=== PATIENT | male | born 1955 | race Caucasian/White ===

== ENCOUNTER 2018-01-09 19:53 | Inpatient (IN) ==
[2018-01-09] MEDS ORDERED: SODIUM CHLORIDE 0.9% 1,000 ML IV STA ×2 (20:10→21:10)
[2018-01-09 20:36] LABS: Basophils % 0.2 % (0.0-0.8); Eosinophils % 0.1 % (0.00-10.9); Hematocrit 19.9 VOL% (42.0-52.0); Immature Granulocytes % 1.1 %; Immature Granulocytes Absolute 0.16 #; Lymphocytes # 1.1 10*3/uL (1.4-4.0); Lymphocytes % 7.7 % (21.2-54.2); Mean Corpuscular HGB Conc 35.2 GM/DL (32-36); Mean Corpuscular Hemoglobin 31 PG (27-34); Mean Corpuscular Volume 88.8 FL (87-102); Mean Platelet Volume 9.5 FL (9.6-12.0); Monocytes # 0.7 10*3/uL (0.11-0.8); Monocytes % 5.1 % (1.7-12.7); Neutrophils # 12.5 10*3/uL (1.4-7.4); Neutrophils % 85.8 % (38.7-73.9); Platelet Count 276 T/CUMM (130-400); Red Blood Count 2.24 MC/CUMM (3.8-5.5); Red Cell Distribution Width 12.6 % (9.3-17.3); White Blood Count 14.6 T/CUMM (4-12)
[2018-01-09 20:52] LABS: PT Patient Result 10.6 SECS; Partial Thromboplastin Time 32.9 SECS (0-40)
[2018-01-09 21:05] LABS: Alanine Aminotransferase 13 U/L (16-61); Albumin 2.6 G/DL (3.4-5.0); Alkaline Phosphatase 67 U/L (45-117); Aspartate Amino Transferase 12 U/L (0-37); Blood Urea Nitrogen 76 MG/DL (7-18); Calcium 7.5 MG/DL (8.5-10.1); Glucose 100 MG/DL (74-106); Potassium 4.5 MMOL/L (3.5-5.1); Sodium 136 MMOL/L (136-145); Total Protein 4.6 G/DL (6.4-8.3); Troponin I Only 0.018 NG/ML (0.00-0.045)
[2018-01-09 22:25] LABS: Apearance,Urine CLEAR (Clear); Bilirubin,Urine Negative (Negative); Blood, Urine Negative (Negative); Glucose,Urine (UA) Negative (Negative); Hyaline Casts,Urine 2 /LPF (0-3); Ketones,Urine Negative (Negative); Nitrite,Urine Negative (Negative); Protein,Urine Negative; Urine Color Straw (Yellow); Urine Specific Gravity 1.009 (1.001-1.035); Urine Urobilinogen < 2.0 EU/DL (0.2-1.0)
[2018-01-10] MEDS ORDERED: ACETAMINOPHEN 325 MG TABLET ONE (00:33)
[2018-01-10] MEDS ORDERED: ACETAMINOPHEN 325 MG TABLET PO ONE (00:33)
[2018-01-10] MEDS ORDERED: SODIUM CHLORIDE 0.9% 1,000 ML IV PRN (00:37)
[2018-01-10] MEDS ORDERED: ONDANSETRON 4 MG/2 ML VIAL IV PRN (00:39)
[2018-01-10] MEDS ORDERED: PANTOPRAZOLE 40 MG VIAL IV ONE (00:43)
[2018-01-10] MEDS: SODIUM CHLORIDE 0.9% 1,000 ML IV SCH ×3 (01:33→21:23)
[2018-01-10 08:08] LABS: Basophils % 0.2 % (0.0-0.8); Eosinophils # 0.1 10*3/uL (0.0-0.87); Eosinophils % 0.4 % (0.00-10.9); Hematocrit 19.7 VOL% (42.0-52.0); Hemoglobin 6.8 GM/DL (14.0-18.0); Immature Granulocytes % 0.9 %; Lymphocytes # 1.6 10*3/uL (1.4-4.0); Lymphocytes % 14.4 % (21.2-54.2); Mean Corpuscular HGB Conc 34.5 GM/DL (32-36); Mean Corpuscular Hemoglobin 31 PG (27-34); Mean Corpuscular Volume 88.3 FL (87-102); Mean Platelet Volume 9.7 FL (9.6-12.0); Monocytes # 0.8 10*3/uL (0.11-0.8); Monocytes % 6.8 % (1.7-12.7); Neutrophils # 8.6 10*3/uL (1.4-7.4); Neutrophils % 77.3 % (38.7-73.9); Platelet Count 243 T/CUMM (130-400); Red Blood Count 2.23 MC/CUMM (3.8-5.5); Red Cell Distribution Width 13.1 % (9.3-17.3); White Blood Count 11.2 T/CUMM (4-12)
[2018-01-10 08:34] LABS: Calcium 7.6 MG/DL (8.5-10.1); Osmolality,Calculated 291.7 MOS/KG (273-304); Potassium 4.4 MMOL/L (3.5-5.1)
[2018-01-10] MEDS: CARBIDOPA/LEVODOPA 25-100 MG TABLET PO SCH ×3 (09:00→21:22)
[2018-01-10] MEDS: PANTOPRAZOLE 40 MG VIAL IV SCH ×2 (09:55→21:19)
[2018-01-10] MEDS ORDERED: MORPHINE 4 MG/1 ML VIAL IV PRN (14:10)
[2018-01-10 19:57] LABS: Hematocrit 18.7 VOL% (42.0-52.0)
[2018-01-10 20:01] LABS: Hemoglobin 6.3 GM/DL (14.0-18.0)
[2018-01-10] MEDS ORDERED: FUROSEMIDE 20 MG/2 ML VIAL IV ONE (20:21)
[2018-01-10] MEDS: RASAGILINE 0.5 MG TABLET PO SCH (21:22)
[2018-01-11 06:18] LABS: Hematocrit 17.3 VOL% (42.0-52.0)
[2018-01-11 06:21] LABS: Hemoglobin 5.9 GM/DL (14.0-18.0)
[2018-01-11] MEDS ORDERED: SODIUM CHLORIDE 0.9% 1,000 ML IV PRN ×2 (06:48→08:42)
[2018-01-11] MEDS: SODIUM CHLORIDE 0.9% 1,000 ML IV SCH ×3 (07:30→23:26)
[2018-01-11] MEDS ORDERED: FUROSEMIDE 20 MG/2 ML VIAL IV ONE (07:37)
[2018-01-11] MEDS: CARBIDOPA/LEVODOPA 25-100 MG TABLET PO SCH ×3 (08:48→20:44)
[2018-01-11] MEDS: PANTOPRAZOLE 40 MG VIAL IV SCH ×2 (08:48→20:43)
[2018-01-11] MEDS: RASAGILINE 0.5 MG TABLET PO SCH (08:48)
[2018-01-11] MEDS ORDERED: SUCCINYLCHOLINE 200 MG/10 ML VIAL ONE (09:30)
[2018-01-11] MEDS ORDERED: LIDOCAINE 1% 5 ML VIAL ONE (09:30)
[2018-01-11] MEDS ORDERED: ETOMIDATE 20 MG/10 ML VIAL IV ONE (09:30)
[2018-01-11] MEDS ORDERED: PHENYLEPHRINE 50 MG/5 ML VIAL ONE (09:30)
[2018-01-11] MEDS ORDERED: SEVOFLURANE 1 UNIT/15 MINUTE INH ONE (09:51)
[2018-01-11 11:28] LABS: Hematocrit 21.9 VOL% (42.0-52.0)
[2018-01-11 11:32] LABS: Hemoglobin 7.5 GM/DL (14.0-18.0)
[2018-01-11] MEDS ORDERED: GLUCAGON 1 MG VIAL ONE (12:12)
[2018-01-11] MEDS ORDERED: EPINEPHrine 1 MG/ML VIAL ONE (12:13)
[2018-01-11] MEDS: FUROSEMIDE 20 MG/2 ML VIAL IV PRN ×2 (14:39→18:02)
[2018-01-11 19:01] LABS: Hematocrit 26.9 VOL% (42.0-52.0); Hemoglobin 9.2 GM/DL (14.0-18.0)
[2018-01-12] MEDS: SODIUM CHLORIDE 0.9% 1,000 ML IV SCH ×2 (01:34→10:32)
[2018-01-12 05:43] LABS: Basophils % 0.3 % (0.0-0.8); Eosinophils # 0.3 10*3/uL (0.0-0.87); Eosinophils % 1.9 % (0.00-10.9); Hematocrit 24.5 VOL% (42.0-52.0); Hemoglobin 8.3 GM/DL (14.0-18.0); Immature Granulocytes % 1.1 %; Immature Granulocytes Absolute 0.14 #; Lymphocytes % 15.1 % (21.2-54.2); Mean Corpuscular HGB Conc 33.9 GM/DL (32-36); Mean Corpuscular Hemoglobin 31 PG (27-34); Mean Corpuscular Volume 90.7 FL (87-102); Mean Platelet Volume 9.6 FL (9.6-12.0); Monocytes # 0.9 10*3/uL (0.11-0.8); Monocytes % 7.2 % (1.7-12.7); Neutrophils # 9.7 10*3/uL (1.4-7.4); Neutrophils % 74.4 % (38.7-73.9); Platelet Count 179 T/CUMM (130-400); Red Cell Distribution Width 14.2 % (9.3-17.3)
[2018-01-12 05:48] LABS: PT Patient Result 10.3 SECS
[2018-01-12 06:27] LABS: Calcium 7.2 MG/DL (8.5-10.1); Osmolality,Calculated 277.8 MOS/KG (273-304); Potassium 3.2 MMOL/L (3.5-5.1)
[2018-01-12] MEDS: RASAGILINE 0.5 MG TABLET PO SCH (10:31)
[2018-01-12] MEDS: CARBIDOPA/LEVODOPA 25-100 MG TABLET PO SCH ×3 (10:32→21:08)
[2018-01-12] MEDS: PANTOPRAZOLE 40 MG VIAL IV SCH ×2 (10:32→21:08)
[2018-01-12 13:13] LABS: Hematocrit 23.1 VOL% (42.0-52.0); Hemoglobin 8.3 GM/DL (14.0-18.0)
[2018-01-12] MEDS ORDERED: SODIUM CHLORIDE 0.9% 1,000 ML IV PRN (15:25)
[2018-01-12 15:50] LABS: Hematocrit 24.9 VOL% (42.0-52.0); Hemoglobin 8.5 GM/DL (14.0-18.0)
[2018-01-12 21:22] LABS: Hematocrit 25.2 VOL% (42.0-52.0); Hemoglobin 8.7 GM/DL (14.0-18.0)
[2018-01-13 03:18] LABS: Hematocrit 27.5 VOL% (42.0-52.0); Hemoglobin 9.5 GM/DL (14.0-18.0)
[2018-01-13 05:07] LABS: Hematocrit 27.2 VOL% (42.0-52.0); Hemoglobin 9.6 GM/DL (14.0-18.0)
[2018-01-13] MEDS: RASAGILINE 0.5 MG TABLET PO SCH (08:46)
[2018-01-13] MEDS: PANTOPRAZOLE 40 MG VIAL IV SCH ×2 (08:47→20:44)
[2018-01-13] MEDS: CARBIDOPA/LEVODOPA 25-100 MG TABLET PO SCH ×3 (08:47→20:44)
[2018-01-13] MEDS ORDERED: MORPHINE 4 MG/1 ML VIAL IV PRN (13:09)
[2018-01-14 05:32] LABS: Basophils % 0.2 % (0.0-0.8); Eosinophils # 0.4 10*3/uL (0.0-0.87); Eosinophils % 3.6 % (0.00-10.9); Hematocrit 28.1 VOL% (42.0-52.0); Immature Granulocytes % 0.8 %; Immature Granulocytes Absolute 0.09 #; Lymphocytes # 1.4 10*3/uL (1.4-4.0); Lymphocytes % 12.2 % (21.2-54.2); Mean Corpuscular HGB Conc 35.6 GM/DL (32-36); Mean Corpuscular Hemoglobin 32 PG (27-34); Mean Corpuscular Volume 88.6 FL (87-102); Mean Platelet Volume 9.7 FL (9.6-12.0); Monocytes # 0.8 10*3/uL (0.11-0.8); Monocytes % 7.2 % (1.7-12.7); Neutrophils # 8.7 10*3/uL (1.4-7.4); Platelet Count 259 T/CUMM (130-400); Red Blood Count 3.17 MC/CUMM (3.8-5.5); Red Cell Distribution Width 14.3 % (9.3-17.3); White Blood Count 11.5 T/CUMM (4-12)
[2018-01-14] MEDS: CARBIDOPA/LEVODOPA 25-100 MG TABLET PO SCH ×4 (09:25→20:07)
[2018-01-14] MEDS: PANTOPRAZOLE 40 MG VIAL IV SCH ×3 (09:25→20:07)
[2018-01-14] MEDS: RASAGILINE 0.5 MG TABLET PO SCH (09:25)
[2018-01-15] MEDS ORDERED: PANTOPRAZOLE 40 MG TABLET PO SCH (07:00)
[2018-01-15 07:34] LABS: Basophils % 0.3 % (0.0-0.8); Eosinophils # 0.5 10*3/uL (0.0-0.87); Eosinophils % 5.1 % (0.00-10.9); Hematocrit 29.2 VOL% (42.0-52.0); Hemoglobin 9.9 GM/DL (14.0-18.0); Immature Granulocytes % 0.7 %; Immature Granulocytes Absolute 0.06 #; Lymphocytes # 1.1 10*3/uL (1.4-4.0); Lymphocytes % 12.3 % (21.2-54.2); Mean Corpuscular HGB Conc 33.9 GM/DL (32-36); Mean Corpuscular Hemoglobin 31 PG (27-34); Mean Corpuscular Volume 91.5 FL (87-102); Monocytes # 0.7 10*3/uL (0.11-0.8); Monocytes % 7.8 % (1.7-12.7); Neutrophils # 6.7 10*3/uL (1.4-7.4); Neutrophils % 73.8 % (38.7-73.9); Platelet Count 282 T/CUMM (130-400); Red Blood Count 3.19 MC/CUMM (3.8-5.5); Red Cell Distribution Width 14.6 % (9.3-17.3); White Blood Count 9.1 T/CUMM (4-12)
[2018-01-15] MEDS: CARBIDOPA/LEVODOPA 25-100 MG TABLET PO SCH (08:46)
[2018-01-15] MEDS: RASAGILINE 0.5 MG TABLET PO SCH (08:46)
[2018-01-15 12:12] VITALS: BP 122/66
== END 2018-01-15 14:20 | disposition home health service (06) | DRG 377 ==
LOC: EDBD → EDUNIT# → N.ED 19:53 → N.EDINP 23:39 → N.3E 01-10 00:10 → N.ICU 01-11 10:33 → N.5E 01-12 14:49
PROVIDERS: ADMIT Internal Medicine Geriatric Medicine; ATTEND Internal Medicine Geriatric Medicine

== ENCOUNTER 2018-01-17 10:50 | Inpatient (IN) ==
[2018-01-17] MEDS ORDERED: PANTOPRAZOLE 40 MG VIAL IV STA (11:12)
[2018-01-17] MEDS ORDERED: ONDANSETRON 4 MG/2 ML VIAL IV STA (11:12)
[2018-01-17] MEDS ORDERED: SODIUM CHLORIDE 0.9% 1,000 ML IV STA (11:12)
[2018-01-17] MEDS ORDERED: ONDANSETRON 4 MG/2 ML VIAL ONE (11:41)
[2018-01-17] MEDS ORDERED: PANTOPRAZOLE 40 MG VIAL IV ONE (11:41)
[2018-01-17 12:58] LABS: Basophils % 0.2 % (0.0-0.8); Eosinophils # 0.2 10*3/uL (0.0-0.87); Eosinophils % 1.5 % (0.00-10.9); Hematocrit 16.2 VOL% (42.0-52.0); Immature Granulocytes % 0.9 %; Lymphocytes # 0.6 10*3/uL (1.4-4.0); Lymphocytes % 5.8 % (21.2-54.2); Mean Corpuscular HGB Conc 32.7 GM/DL (32-36); Mean Corpuscular Hemoglobin 31 PG (27-34); Mean Corpuscular Volume 93.1 FL (87-102); Mean Platelet Volume 9.3 FL (9.6-12.0); Monocytes # 0.6 10*3/uL (0.11-0.8); Monocytes % 5.8 % (1.7-12.7); Neutrophils # 9.1 10*3/uL (1.4-7.4); Neutrophils % 85.8 % (38.7-73.9); Platelet Count 261 T/CUMM (130-400); Red Blood Count 1.74 MC/CUMM (3.8-5.5); White Blood Count 10.6 T/CUMM (4-12)
[2018-01-17 13:01] LABS: Hemoglobin 5.3 GM/DL (14.0-18.0)
[2018-01-17] MEDS ORDERED: SODIUM CHLORIDE 0.9% 1,000 ML IV PRN ×2 (13:02→21:07)
[2018-01-17 13:12] LABS: Alanine Aminotransferase < 6 U/L (16-61); Albumin 1.8 G/DL (3.4-5.0); Alkaline Phosphatase 56 U/L (45-117); Aspartate Amino Transferase 17 U/L (0-37); Blood Urea Nitrogen 27 MG/DL (7-18); Calcium 6.9 MG/DL (8.5-10.1); Glucose 109 MG/DL (74-106); Osmolality,Calculated 280.7 MOS/KG (273-304); Potassium 4.2 MMOL/L (3.5-5.1); Sodium 138 MMOL/L (136-145); Total Protein 3.8 G/DL (6.4-8.3)
[2018-01-17] MEDS ORDERED: ALBUTEROL 2.5 MG/3 ML NEB RESP TX PRN (14:10)
[2018-01-17] MEDS ORDERED: ACETAMINOPHEN 325 MG TABLET PO PRN (14:10)
[2018-01-17] MEDS ORDERED: ONDANSETRON 4 MG/2 ML VIAL IV PRN (14:10)
[2018-01-17 17:49] LABS: PT Patient Result 10.8 SECS; Partial Thromboplastin Time 38.8 SECS (0-40)
[2018-01-17] MEDS: CARBIDOPA/LEVODOPA 25-100 MG TABLET PO SCH ×2 (18:19→22:02)
[2018-01-17] MEDS: SODIUM CHLORIDE 0.9% 1,000 ML IV SCH (18:19)
[2018-01-17 22:33] LABS: Hematocrit 22.6 VOL% (42.0-52.0); Hemoglobin 7.5 GM/DL (14.0-18.0)
[2018-01-18 00:50] LABS: Hematocrit 21.4 VOL% (42.0-52.0); Hemoglobin 7.4 GM/DL (14.0-18.0)
[2018-01-18] MEDS: SODIUM CHLORIDE 0.9% 1,000 ML IV SCH ×2 (02:18→10:28)
[2018-01-18 02:25] LABS: Hematocrit 20.8 VOL% (42.0-52.0); Hemoglobin 7.2 GM/DL (14.0-18.0)
[2018-01-18 04:24] LABS: Basophils % 0.1 % (0.0-0.8); Eosinophils # 0.3 10*3/uL (0.0-0.87); Eosinophils % 3.9 % (0.00-10.9); Hematocrit 20.7 VOL% (42.0-52.0); Hemoglobin 7.2 GM/DL (14.0-18.0); Immature Granulocytes % 0.7 %; Immature Granulocytes Absolute 0.06 #; Lymphocytes # 1.5 10*3/uL (1.4-4.0); Lymphocytes % 16.5 % (21.2-54.2); Mean Corpuscular HGB Conc 34.8 GM/DL (32-36); Mean Corpuscular Hemoglobin 31 PG (27-34); Mean Corpuscular Volume 88.8 FL (87-102); Mean Platelet Volume 9.3 FL (9.6-12.0); Monocytes # 0.7 10*3/uL (0.11-0.8); Neutrophils # 6.3 10*3/uL (1.4-7.4); Neutrophils % 70.8 % (38.7-73.9); Platelet Count 224 T/CUMM (130-400); Red Blood Count 2.33 MC/CUMM (3.8-5.5); White Blood Count 8.8 T/CUMM (4-12)
[2018-01-18 04:32] LABS: PT Patient Result 10.9 SECS
[2018-01-18 05:04] LABS: Alanine Aminotransferase < 6 U/L (16-61); Albumin 1.7 G/DL (3.4-5.0); Alkaline Phosphatase 52 U/L (45-117); Aspartate Amino Transferase 16 U/L (0-37); Blood Urea Nitrogen 24 MG/DL (7-18); Glucose 88 MG/DL (74-106); Osmolality,Calculated 281.4 MOS/KG (273-304); Potassium 4.3 MMOL/L (3.5-5.1); Sodium 140 MMOL/L (136-145); Total Protein 3.3 G/DL (6.4-8.3)
[2018-01-18 07:29] LABS: Hematocrit 20.7 VOL% (42.0-52.0); Hemoglobin 7.2 GM/DL (14.0-18.0)
[2018-01-18] MEDS: PANTOPRAZOLE 40 MG TABLET PO SCH (09:02)
[2018-01-18] MEDS: PRAMIPEXOLE 1 MG TABLET PO SCH (09:02)
[2018-01-18] MEDS: RASAGILINE 0.5 MG TABLET PO SCH (09:03)
[2018-01-18] MEDS: CARBIDOPA/LEVODOPA 25-100 MG TABLET PO SCH ×3 (09:03→21:25)
[2018-01-18] MEDS ORDERED: DIAZEPAM 5 MG TABLET PO ONE (09:54)
[2018-01-18] MEDS ORDERED: MIDAZOLAM 2 MG/2 ML VIAL IV ONE (09:54)
[2018-01-18] MEDS ORDERED: HEPARIN/NACL 0.9% 2 UNITS/ML 2,000 ML IV ONE (11:08)
[2018-01-18] MEDS ORDERED: MIDAZOLAM 2 MG/2 ML VIAL ONE (11:39)
[2018-01-18 14:28] LABS: Hematocrit 22.4 VOL% (42.0-52.0); Hemoglobin 7.8 GM/DL (14.0-18.0)
[2018-01-18] MEDS ORDERED: FUROSEMIDE 20 MG/2 ML VIAL IV PRN (17:28)
[2018-01-18] MEDS ORDERED: SODIUM CHLORIDE 0.9% 1,000 ML IV PRN (17:28)
[2018-01-19] MEDS: SODIUM CHLORIDE 0.9% 1,000 ML IV SCH ×6 (02:10→18:53)
[2018-01-19 02:33] LABS: Hematocrit 27.8 VOL% (42.0-52.0); Hemoglobin 9.3 GM/DL (14.0-18.0)
[2018-01-19 05:59] LABS: Lactic Acid 0.5 MMOL/L (0.4-2.0)
[2018-01-19 06:05] LABS: Alanine Aminotransferase < 6 U/L (16-61); Albumin 1.8 G/DL (3.4-5.0); Alkaline Phosphatase 61 U/L (45-117); Aspartate Amino Transferase 16 U/L (0-37); Bilirubin,Indirect 0.9 MG/DL (0.0-1.0); Total Protein 3.5 G/DL (6.4-8.3)
[2018-01-19 06:52] LABS: Hematocrit 24.9 VOL% (42.0-52.0); Hemoglobin 8.4 GM/DL (14.0-18.0)
[2018-01-19] MEDS: PRAMIPEXOLE 1 MG TABLET PO SCH (08:52)
[2018-01-19] MEDS: RASAGILINE 0.5 MG TABLET PO SCH (08:53)
[2018-01-19] MEDS: CARBIDOPA/LEVODOPA 25-100 MG TABLET PO SCH ×3 (08:53→21:00)
[2018-01-19] MEDS: PANTOPRAZOLE 40 MG TABLET PO SCH (08:53)
[2018-01-19 14:16] LABS: Hematocrit 24.7 VOL% (42.0-52.0); Hemoglobin 8.5 GM/DL (14.0-18.0)
[2018-01-19 23:38] LABS: Hematocrit 23.9 VOL% (42.0-52.0); Hemoglobin 8.2 GM/DL (14.0-18.0)
[2018-01-20] MEDS: SODIUM CHLORIDE 0.9% 1,000 ML IV SCH ×2 (02:57→12:00)
[2018-01-20 06:14] LABS: Basophils % 0.4 % (0.0-0.8); Eosinophils # 0.4 10*3/uL (0.0-0.87); Eosinophils % 4.1 % (0.00-10.9); Hematocrit 25.9 VOL% (42.0-52.0); Immature Granulocytes % 0.7 %; Immature Granulocytes Absolute 0.07 #; Lymphocytes # 1.1 10*3/uL (1.4-4.0); Lymphocytes % 11.1 % (21.2-54.2); Mean Corpuscular HGB Conc 34.7 GM/DL (32-36); Mean Corpuscular Hemoglobin 31 PG (27-34); Mean Corpuscular Volume 88.7 FL (87-102); Mean Platelet Volume 9.5 FL (9.6-12.0); Monocytes # 0.9 10*3/uL (0.11-0.8); Monocytes % 8.5 % (1.7-12.7); Neutrophils # 7.7 10*3/uL (1.4-7.4); Neutrophils % 75.2 % (38.7-73.9); Platelet Count 263 T/CUMM (130-400); Red Blood Count 2.92 MC/CUMM (3.8-5.5); White Blood Count 10.2 T/CUMM (4-12)
[2018-01-20 06:35] LABS: Ferritin 132.4 ng/ml (26-388)
[2018-01-20 06:43] LABS: Folate 8.4 NG/ML (5.4-24.0); Vitamin B12 149 PG/ML (211-911)
[2018-01-20 07:32] LABS: Sedimentation Rate-Westergren 38 MM/HR (0-20)
[2018-01-20] MEDS: CARBIDOPA/LEVODOPA 25-100 MG TABLET PO SCH ×3 (08:31→21:32)
[2018-01-20] MEDS: RASAGILINE 0.5 MG TABLET PO SCH (08:31)
[2018-01-20] MEDS: PANTOPRAZOLE 40 MG TABLET PO SCH ×2 (08:31→21:32)
[2018-01-20] MEDS: PRAMIPEXOLE 1 MG TABLET PO SCH (08:31)
[2018-01-20] MEDS ORDERED: CYANOCOBALAMIN 1000 MCG/1 ML VIAL SUBCUT ONE (12:36)
[2018-01-20] MEDS ORDERED: IRON SUCROSE 300 MG in SODIUM CHLORIDE 0.9% 100 ML IV ONE (13:30)
[2018-01-20 13:47] LABS: Hematocrit 24.4 VOL% (42.0-52.0); Hemoglobin 8.2 GM/DL (14.0-18.0)
[2018-01-20 21:43] LABS: Hematocrit 25.6 VOL% (42.0-52.0); Hemoglobin 8.6 GM/DL (14.0-18.0)
[2018-01-21] MEDS: ZALEPLON 5 MG CAPSULE PO PRN ×2 (00:07→21:33)
[2018-01-21 06:14] LABS: Hematocrit 24.9 VOL% (42.0-52.0); Hemoglobin 8.4 GM/DL (14.0-18.0)
[2018-01-21] MEDS: PANTOPRAZOLE 40 MG TABLET PO SCH ×2 (06:20→21:33)
[2018-01-21] MEDS: RASAGILINE 0.5 MG TABLET PO SCH (09:10)
[2018-01-21] MEDS: CYANOCOBALAMIN 500 MCG TABLET PO SCH (10:37)
[2018-01-21] MEDS: CARBIDOPA/LEVODOPA 25-100 MG TABLET PO SCH ×3 (10:37→21:33)
[2018-01-21] MEDS: PRAMIPEXOLE 1 MG TABLET PO SCH (10:37)
[2018-01-22 04:50] LABS: Basophils # 0.1 10*3/uL (0.0-0.2); Basophils % 0.5 % (0.0-0.8); Eosinophils # 0.6 10*3/uL (0.0-0.87); Eosinophils % 5.8 % (0.00-10.9); Hematocrit 26.5 VOL% (42.0-52.0); Immature Granulocytes % 0.5 %; Immature Granulocytes Absolute 0.05 #; Lymphocytes # 1.3 10*3/uL (1.4-4.0); Lymphocytes % 14.2 % (21.2-54.2); Mean Corpuscular Hemoglobin 30 PG (27-34); Mean Corpuscular Volume 88.9 FL (87-102); Mean Platelet Volume 8.9 FL (9.6-12.0); Monocytes # 0.7 10*3/uL (0.11-0.8); Monocytes % 7.7 % (1.7-12.7); Neutrophils # 6.7 10*3/uL (1.4-7.4); Neutrophils % 71.3 % (38.7-73.9); Platelet Count 345 T/CUMM (130-400); Red Blood Count 2.98 MC/CUMM (3.8-5.5); Red Cell Distribution Width 14.5 % (9.3-17.3); White Blood Count 9.4 T/CUMM (4-12)
[2018-01-22 05:33] LABS: Calcium 8.2 MG/DL (8.5-10.1); Osmolality,Calculated 274.5 MOS/KG (273-304); Potassium 4.1 MMOL/L (3.5-5.1)
[2018-01-22] MEDS: PANTOPRAZOLE 40 MG TABLET PO SCH ×2 (06:10→20:30)
[2018-01-22] MEDS ORDERED: POLYETHYLENE GLYCOL POWDER 17 GM PACK PO SCH (09:00)
[2018-01-22] MEDS: PRAMIPEXOLE 1 MG TABLET PO SCH (09:15)
[2018-01-22] MEDS: CYANOCOBALAMIN 500 MCG TABLET PO SCH (09:15)
[2018-01-22] MEDS: RASAGILINE 0.5 MG TABLET PO SCH (09:16)
[2018-01-22] MEDS: DOCUSATE SODIUM 100 MG CAPSULE PO SCH ×2 (09:16→20:29)
[2018-01-22] MEDS: CARBIDOPA/LEVODOPA 25-100 MG TABLET PO SCH ×3 (09:16→20:29)
[2018-01-22] MEDS: ZALEPLON 5 MG CAPSULE PO PRN (20:29)
[2018-01-23] MEDS: PANTOPRAZOLE 40 MG TABLET PO SCH ×2 (06:18→18:17)
[2018-01-23 08:07] LABS: Basophils # 0.1 10*3/uL (0.0-0.2); Basophils % 0.8 % (0.0-0.8); Eosinophils # 0.6 10*3/uL (0.0-0.87); Eosinophils % 6.4 % (0.00-10.9); Hematocrit 28.4 VOL% (42.0-52.0); Hemoglobin 9.4 GM/DL (14.0-18.0); Immature Granulocytes % 0.6 %; Immature Granulocytes Absolute 0.05 #; Lymphocytes # 1.3 10*3/uL (1.4-4.0); Lymphocytes % 14.5 % (21.2-54.2); Mean Corpuscular HGB Conc 33.1 GM/DL (32-36); Mean Corpuscular Hemoglobin 31 PG (27-34); Mean Corpuscular Volume 92.2 FL (87-102); Mean Platelet Volume 9.1 FL (9.6-12.0); Monocytes # 0.6 10*3/uL (0.11-0.8); Monocytes % 6.5 % (1.7-12.7); Neutrophils # 6.2 10*3/uL (1.4-7.4); Neutrophils % 71.2 % (38.7-73.9); Platelet Count 376 T/CUMM (130-400); Red Blood Count 3.08 MC/CUMM (3.8-5.5); Red Cell Distribution Width 14.4 % (9.3-17.3); White Blood Count 8.7 T/CUMM (4-12)
[2018-01-23 09:23] LABS: Hemoglobin A1 (Alkaline) 98.3 % (96.5-98.5); Hemoglobin A2 (Alkaline) 1.7 % (1.5-3.5)
[2018-01-23] MEDS: RASAGILINE 0.5 MG TABLET PO SCH (09:24)
[2018-01-23] MEDS: CARBIDOPA/LEVODOPA 25-100 MG TABLET PO SCH ×3 (09:24→21:01)
[2018-01-23] MEDS: LINACLOTIDE 145 MCG CAPSULE PO SCH (09:24)
[2018-01-23] MEDS: CYANOCOBALAMIN 500 MCG TABLET PO SCH (09:24)
[2018-01-23] MEDS: PRAMIPEXOLE 1 MG TABLET PO SCH (09:24)
[2018-01-24] MEDS: PANTOPRAZOLE 40 MG TABLET PO SCH ×2 (06:35→18:51)
[2018-01-24] MEDS: LINACLOTIDE 145 MCG CAPSULE PO SCH (06:35)
[2018-01-24] MEDS: RASAGILINE 0.5 MG TABLET PO SCH (09:17)
[2018-01-24] MEDS: CARBIDOPA/LEVODOPA 25-100 MG TABLET PO SCH ×3 (09:17→20:31)
[2018-01-24] MEDS: PRAMIPEXOLE 1 MG TABLET PO SCH (09:17)
[2018-01-24] MEDS: CYANOCOBALAMIN 500 MCG TABLET PO SCH (09:17)
[2018-01-25] MEDS: PANTOPRAZOLE 40 MG TABLET PO SCH (06:29)
[2018-01-25] MEDS: LINACLOTIDE 145 MCG CAPSULE PO SCH (06:29)
[2018-01-25] MEDS: RASAGILINE 0.5 MG TABLET PO SCH (08:41)
[2018-01-25] MEDS: CARBIDOPA/LEVODOPA 25-100 MG TABLET PO SCH (08:41)
[2018-01-25] MEDS: CYANOCOBALAMIN 500 MCG TABLET PO SCH (08:41)
[2018-01-25] MEDS: PRAMIPEXOLE 1 MG TABLET PO SCH (08:42)
[2018-01-25 11:49] VITALS: BP 121/69
== END 2018-01-25 12:40 | disposition swing bed (61) | DRG 270 ==
LOC: EDBD → EDUNIT# → N.ED 10:50 → N.EDINP 13:19 → SUATTDRO 13:19 → N.CC 16:20 → N.4E 01-20 17:42
PROVIDERS: ATTEND Hospitalist
PROC: IRAGMES (2018-01-18 11:20)

== ENCOUNTER 2019-04-07 14:32 | Inpatient (IN) ==
[2019-04-07] MEDS ORDERED: DIPH/TET/ACEL PERT BOOSTER VACCINE 0.5 ML VIAL IM ONE ×2 (15:12→15:34)
[2019-04-07 15:34] LABS: Basophils # 0.1 10*3/uL (0.0-0.2); Basophils % 0.6 % (0.0-0.8); Eosinophils # 0.3 10*3/uL (0.0-0.87); Eosinophils % 3.9 % (0.00-10.9); Hematocrit 34.3 VOL% (42.0-52.0); Hemoglobin 11.9 GM/DL (14.0-18.0); Immature Granulocytes % 0.5 %; Immature Granulocytes Absolute 0.04 #; Lymphocytes % 11.4 % (21.2-54.2); Mean Corpuscular HGB Conc 34.7 GM/DL (32-36); Mean Corpuscular Volume 86.4 FL (87-102); Mean Platelet Volume 9.4 FL (9.6-12.0); Monocytes % 9.4 % (1.7-12.7); Neutrophils % 74.2 % (38.7-73.9); Platelet Count 241 T/CUMM (130-400); Red Blood Count 3.97 MC/CUMM (3.8-5.5); Red Cell Distribution Width 12.4 % (9.3-17.3); White Blood Count 8.4 T/CUMM (4-12)
[2019-04-07 15:48] LABS: Calcium 8.9 MG/DL (8.5-10.1); Osmolality,Calculated 251.2 MOS/KG (273-304)
[2019-04-07 16:25] LABS: Albumin 3.7 G/DL (3.4-5.0); Bilirubin,Direct 0.37 MG/DL (0.0-0.20); Bilirubin,Indirect 1.1 MG/DL (0.0-1.0); Bilirubin,Total 1.5 MG/DL (0.2-1.0); Total Protein 6.6 G/DL (6.4-8.3)
[2019-04-07 16:44] LABS: Apearance,Urine CLEAR (Clear); Bilirubin,Urine Negative (Negative); Blood, Urine Moderate mg/dL (Negative); Glucose,Urine (UA) Negative (Negative); Ketones,Urine 20 mg/dL (Negative); Nitrite,Urine Negative (Negative); Protein,Urine Negative; RBC,Urine 3 /HPF (0-4); Urine Color Yellow (Yellow); Urine Specific Gravity 1.004 (1.001-1.035); Urine Urobilinogen < 2.0 EU/DL (0.2-1.0)
[2019-04-07] MEDS ORDERED: POTASSIUM CHLORIDE RIDER 10 MEQ in PREMIX 1 EACH IV PRN (16:55)
[2019-04-07] MEDS ORDERED: PROMETHAZINE 25 MG/1 ML VIAL IM PRN (16:55)
[2019-04-07] MEDS ORDERED: MAGNESIUM SULF RIDER 4 GM in PREMIX 1 EACH IV PRN (16:55)
[2019-04-07] MEDS ORDERED: MAGNESIUM SULF RIDER 2 GM in PREMIX 1 EACH IV PRN (16:55)
[2019-04-07] MEDS ORDERED: ONDANSETRON 4 MG/2 ML VIAL IV PRN (16:55)
[2019-04-07] MEDS ORDERED: ACETAMINOPHEN 325 MG TABLET PO PRN (16:55)
[2019-04-07] MEDS ORDERED: diphenhydrAMINE CAP 25 MG CAPSULE PO PRN (16:55)
[2019-04-07] MEDS ORDERED: cloNIDine 0.1 MG TABLET PO PRN (18:19)
[2019-04-07] MEDS ORDERED: CARBIDOPA LEVODOPA PO SCH (21:00)
[2019-04-07] MEDS: ENTACAPONE 200 MG TABLET PO SCH (21:52)
[2019-04-07] MEDS: PRAMIPEXOLE 1 MG TABLET PO SCH (21:52)
[2019-04-07] MEDS: CARVEDILOL 3.125 MG TABLET PO SCH (21:52)
[2019-04-08 05:29] LABS: Basophils # 0.1 10*3/uL (0.0-0.2); Basophils % 0.7 % (0.0-0.8); Eosinophils # 0.3 10*3/uL (0.0-0.87); Eosinophils % 4.7 % (0.00-10.9); Hemoglobin 12.8 GM/DL (14.0-18.0); Immature Granulocytes % 0.6 %; Immature Granulocytes Absolute 0.04 #; Lymphocytes # 0.9 10*3/uL (1.4-4.0); Lymphocytes % 12.8 % (21.2-54.2); Mean Corpuscular HGB Conc 35.6 GM/DL (32-36); Mean Corpuscular Volume 85.7 FL (87-102); Mean Platelet Volume 9.8 FL (9.6-12.0); Monocytes % 11.7 % (1.7-12.7); Neutrophils % 69.5 % (38.7-73.9); Platelet Count 306 T/CUMM (130-400); Red Cell Distribution Width 12.6 % (9.3-17.3); White Blood Count 7.2 T/CUMM (4-12)
[2019-04-08 06:06] LABS: Albumin 3.4 G/DL (3.4-5.0); Bilirubin,Total 1.2 MG/DL (0.2-1.0); Calcium 8.7 MG/DL (8.5-10.1); Osmolality,Calculated 259.5 MOS/KG (273-304); Risk Ratio 3.12; Thyroid Stimulating Hormone 0.589 uIU/ml (0.358-3.74); Total Protein 6.5 G/DL (6.4-8.3); VLDL CHOLESTEROL 18.6 MG/DL
[2019-04-08] MEDS ORDERED: FUROSEMIDE 40 MG/4 ML VIAL IV SCH (08:00)
[2019-04-08] MEDS: PRAMIPEXOLE 1 MG TABLET PO SCH ×3 (08:41→21:00)
[2019-04-08] MEDS: CARVEDILOL 3.125 MG TABLET PO SCH ×2 (08:42→20:59)
[2019-04-08] MEDS: ASPIRIN CHEW 81 MG TABLET PO SCH (08:42)
[2019-04-08] MEDS: RASAGILINE 0.5 MG TABLET PO SCH (08:42)
[2019-04-08] MEDS: ENTACAPONE 200 MG TABLET PO SCH ×4 (08:42→20:59)
[2019-04-08] MEDS: CARBIDOPA/LEVODOPA 25-100 MG TABLET PO SCH ×2 (17:44→20:59)
[2019-04-09 05:56] LABS: Basophils # 0.1 10*3/uL (0.0-0.2); Basophils % 0.8 % (0.0-0.8); Eosinophils # 0.5 10*3/uL (0.0-0.87); Eosinophils % 6.6 % (0.00-10.9); Hematocrit 35.8 VOL% (42.0-52.0); Hemoglobin 12.2 GM/DL (14.0-18.0); Immature Granulocytes % 0.3 %; Immature Granulocytes Absolute 0.02 #; Lymphocytes # 1.6 10*3/uL (1.4-4.0); Lymphocytes % 20.5 % (21.2-54.2); Mean Corpuscular HGB Conc 34.1 GM/DL (32-36); Mean Corpuscular Volume 88.4 FL (87-102); Mean Platelet Volume 9.7 FL (9.6-12.0); Monocytes % 9.1 % (1.7-12.7); Neutrophils % 62.7 % (38.7-73.9); Platelet Count 295 T/CUMM (130-400); Red Blood Count 4.05 MC/CUMM (3.8-5.5); Red Cell Distribution Width 13.2 % (9.3-17.3); White Blood Count 7.6 T/CUMM (4-12)
[2019-04-09 06:09] LABS: Alanine Aminotransferase < 9 U/L (16-61); Albumin 3.2 G/DL (3.4-5.0); Alkaline Phosphatase 106 U/L (45-117); Aspartate Amino Transferase 15 U/L (0-37); Blood Urea Nitrogen 5 MG/DL (7-18); Calcium 9.3 MG/DL (8.5-10.1); Glucose 96 MG/DL (74-106); Osmolality,Calculated 264.2 MOS/KG (273-304)
[2019-04-09] MEDS: CARBIDOPA/LEVODOPA 25-100 MG TABLET PO SCH ×2 (10:32→13:06)
[2019-04-09] MEDS: PRAMIPEXOLE 1 MG TABLET PO SCH (10:32)
[2019-04-09] MEDS: CARVEDILOL 3.125 MG TABLET PO SCH (10:32)
[2019-04-09] MEDS: ENTACAPONE 200 MG TABLET PO SCH ×2 (10:32→13:06)
[2019-04-09] MEDS: ASPIRIN CHEW 81 MG TABLET PO SCH (10:32)
[2019-04-09] MEDS: RASAGILINE 0.5 MG TABLET PO SCH (10:32)
[2019-04-09] MEDS: POTASSIUM CHLORIDE 20 MEQ TABLET PO PRN ×2 (10:33→12:34)
[2019-04-09 11:59] VITALS: BP 123/69
== END 2019-04-09 13:23 | DRG 57 ==
LOC: N.ED 14:32 → SUATTDRO 16:55 → N.EDINP 16:55 → N.2E 17:35
PROVIDERS: ADMIT Phlebology; ATTEND Internal Medicine Nephrology

== ENCOUNTER 2019-05-01 09:41 | Inpatient (IN) ==
[2019-05-01 11:36] LABS: Basophils % 0.5 % (0.0-0.8); Eosinophils # 0.2 10*3/uL (0.0-0.87); Eosinophils % 2.8 % (0.00-10.9); Hematocrit 30.6 VOL% (42.0-52.0); Immature Granulocytes % 0.5 %; Immature Granulocytes Absolute 0.03 #; Lymphocytes # 0.6 10*3/uL (1.4-4.0); Mean Corpuscular HGB Conc 35.9 GM/DL (32-36); Monocytes % 8.1 % (1.7-12.7); Neutrophils % 77.1 % (38.7-73.9); Platelet Count 250 T/CUMM (130-400); White Blood Count 5.8 T/CUMM (4-12)
[2019-05-01 11:56] LABS: Alanine Aminotransferase < 9 U/L (16-61); Albumin 3.5 G/DL (3.4-5.0); Alkaline Phosphatase 123 U/L (45-117); Aspartate Amino Transferase 16 U/L (0-37); Blood Urea Nitrogen 13 MG/DL (7-18); Calcium 8.2 MG/DL (8.5-10.1); Glucose 92 MG/DL (74-106); Osmolality,Calculated 241.2 MOS/KG (273-304); Total Protein 5.8 G/DL (6.4-8.3)
[2019-05-01 12:04] LABS: INR 0.9; PT Patient Result 9.9 SECS
[2019-05-01 12:10] LABS: Partial Thromboplastin Time 40.5 SECS (0-40)
[2019-05-01] MEDS ORDERED: SODIUM CHLORIDE 0.9% 1,000 ML IV STA (12:13)
[2019-05-01 12:49] LABS: Apearance,Urine CLEAR (Clear); Bilirubin,Urine Negative (Negative); Blood, Urine Negative (Negative); Glucose,Urine (UA) 50 mg/dL (Negative); Ketones,Urine 5 mg/dL (Negative); Nitrite,Urine Negative (Negative); Protein,Urine Negative; RBC,Urine <1 /HPF (0-4); Urine Color Amber (Yellow); Urine Specific Gravity 1.011 (1.001-1.035); Urine Urobilinogen < 2.0 EU/DL (0.2-1.0); WBC,Urine <1 /HPF (0-6)
[2019-05-01] MEDS ORDERED: LACTULOSE 20 GM/30 ML UDCUP PO PRN (13:38)
[2019-05-01] MEDS ORDERED: ONDANSETRON 4 MG/2 ML VIAL IV PRN (13:38)
[2019-05-01] MEDS ORDERED: ACETAMINOPHEN 325 MG TABLET PO PRN (13:38)
[2019-05-01] MEDS ORDERED: CARBIDOPA LEVODOPA PO SCH (15:00)
[2019-05-01 15:32] LABS: Calcium 8.3 MG/DL (8.5-10.1); Osmolality,Calculated 243.9 MOS/KG (273-304)
[2019-05-01] MEDS: PRAMIPEXOLE 1 MG TABLET PO SCH ×2 (15:37→20:36)
[2019-05-01] MEDS: ENOXAPARIN 40 MG/0.4 ML SYRINGE SUBCUT SCH (15:37)
[2019-05-01] MEDS: SODIUM CHLORIDE 0.9% 1,000 ML IV SCH (15:38)
[2019-05-01] MEDS: CARBIDOPA/LEVODOPA 25-100 MG TABLET PO SCH ×2 (17:23→20:36)
[2019-05-01] MEDS: ENTACAPONE 200 MG TABLET PO SCH ×2 (17:24→20:44)
[2019-05-01 18:05] LABS: Calcium 8.4 MG/DL (8.5-10.1); Osmolality,Calculated 242.9 MOS/KG (273-304)
[2019-05-01 22:32] LABS: Osmolality,Calculated 249.5 MOS/KG (273-304)
[2019-05-02] MEDS: SODIUM CHLORIDE 0.9% 1,000 ML IV SCH ×5 (00:10→15:33)
[2019-05-02 02:35] LABS: Calcium 8.2 MG/DL (8.5-10.1); Osmolality,Calculated 244.8 MOS/KG (273-304)
[2019-05-02 05:47] LABS: Basophils % 0.7 % (0.0-0.8); Eosinophils # 0.3 10*3/uL (0.0-0.87); Eosinophils % 4.9 % (0.00-10.9); Hematocrit 38.3 VOL% (42.0-52.0); Hemoglobin 13.2 GM/DL (14.0-18.0); Immature Granulocytes % 0.5 %; Immature Granulocytes Absolute 0.03 #; Lymphocytes # 1.1 10*3/uL (1.4-4.0); Lymphocytes % 18.2 % (21.2-54.2); Mean Corpuscular HGB Conc 34.5 GM/DL (32-36); Mean Corpuscular Volume 86.5 FL (87-102); Mean Platelet Volume 9.8 FL (9.6-12.0); Monocytes % 7.3 % (1.7-12.7); Neutrophils % 68.4 % (38.7-73.9); Platelet Count 297 T/CUMM (130-400); Red Blood Count 4.43 MC/CUMM (3.8-5.5); Red Cell Distribution Width 12.2 % (9.3-17.3); White Blood Count 5.8 T/CUMM (4-12)
[2019-05-02 06:14] LABS: Alanine Aminotransferase < 9 U/L (16-61); Albumin 3.7 G/DL (3.4-5.0); Alkaline Phosphatase 142 U/L (45-117); Aspartate Amino Transferase 17 U/L (0-37); Blood Urea Nitrogen 9 MG/DL (7-18); Glucose 71 MG/DL (74-106); Osmolality,Calculated 247.5 MOS/KG (273-304)
[2019-05-02] MEDS ORDERED: COSYNTROPIN 0.25 MG VIAL IV ONE (08:30)
[2019-05-02 08:56] LABS: Free T4 (Free Thyroxine) 1.11 NG/DL (0.76-1.46)
[2019-05-02] MEDS: PRAMIPEXOLE 1 MG TABLET PO SCH ×3 (09:55→21:36)
[2019-05-02] MEDS: RASAGILINE 0.5 MG TABLET PO SCH (09:55)
[2019-05-02] MEDS: FUROSEMIDE 40 MG/4 ML VIAL IV SCH (09:55)
[2019-05-02] MEDS: FERROUS SULFATE 325 MG TABLET PO SCH (09:55)
[2019-05-02] MEDS: PANTOPRAZOLE 40 MG TABLET PO SCH (09:56)
[2019-05-02] MEDS: CARBIDOPA/LEVODOPA 25-100 MG TABLET PO SCH ×4 (09:56→21:36)
[2019-05-02] MEDS: ENTACAPONE 200 MG TABLET PO SCH ×4 (09:58→21:36)
[2019-05-02 14:19] LABS: Calcium 8.3 MG/DL (8.5-10.1); Osmolality,Calculated 256.9 MOS/KG (273-304)
[2019-05-02] MEDS: ENOXAPARIN 40 MG/0.4 ML SYRINGE SUBCUT SCH (14:31)
[2019-05-03] MEDS: SODIUM CHLORIDE 0.9% 1,000 ML IV SCH ×2 (05:13→09:34)
[2019-05-03 05:58] LABS: Calcium 8.6 MG/DL (8.5-10.1); Osmolality,Calculated 261.5 MOS/KG (273-304)
[2019-05-03] MEDS: FERROUS SULFATE 325 MG TABLET PO SCH (09:33)
[2019-05-03] MEDS: ENTACAPONE 200 MG TABLET PO SCH ×4 (09:33→21:16)
[2019-05-03] MEDS: PANTOPRAZOLE 40 MG TABLET PO SCH (09:33)
[2019-05-03] MEDS: LOSARTAN 50 MG TABLET PO SCH (09:33)
[2019-05-03] MEDS: RASAGILINE 0.5 MG TABLET PO SCH (09:33)
[2019-05-03] MEDS: CARBIDOPA/LEVODOPA 25-100 MG TABLET PO SCH ×4 (09:33→22:49)
[2019-05-03] MEDS: PRAMIPEXOLE 1 MG TABLET PO SCH ×3 (09:34→21:16)
[2019-05-03] MEDS: FUROSEMIDE 40 MG/4 ML VIAL IV SCH (09:34)
[2019-05-03] MEDS: ENOXAPARIN 40 MG/0.4 ML SYRINGE SUBCUT SCH (14:34)
[2019-05-04 06:35] LABS: Basophils # 0.1 10*3/uL (0.0-0.2); Basophils % 0.7 % (0.0-0.8); Eosinophils # 0.3 10*3/uL (0.0-0.87); Eosinophils % 3.7 % (0.00-10.9); Hematocrit 33.1 VOL% (42.0-52.0); Hemoglobin 11.4 GM/DL (14.0-18.0); Immature Granulocytes % 0.4 %; Immature Granulocytes Absolute 0.03 #; Lymphocytes # 1.4 10*3/uL (1.4-4.0); Lymphocytes % 20.7 % (21.2-54.2); Mean Corpuscular HGB Conc 34.4 GM/DL (32-36); Mean Corpuscular Volume 87.8 FL (87-102); Mean Platelet Volume 9.2 FL (9.6-12.0); Monocytes % 8.4 % (1.7-12.7); Neutrophils % 66.1 % (38.7-73.9); Platelet Count 274 T/CUMM (130-400); Red Blood Count 3.77 MC/CUMM (3.8-5.5); Red Cell Distribution Width 12.7 % (9.3-17.3); White Blood Count 6.7 T/CUMM (4-12)
[2019-05-04 07:01] LABS: Calcium 8.5 MG/DL (8.5-10.1); Osmolality,Calculated 266.1 MOS/KG (273-304)
[2019-05-04] MEDS ORDERED: TUBERCULIN SKIN TEST 0.1 ML SYRINGE INTRADERM ONE (09:12)
[2019-05-04] MEDS: SODIUM CHLORIDE 0.9% 1,000 ML IV SCH (09:47)
[2019-05-04] MEDS: PRAMIPEXOLE 1 MG TABLET PO SCH ×3 (09:48→21:55)
[2019-05-04] MEDS: RASAGILINE 0.5 MG TABLET PO SCH (09:48)
[2019-05-04] MEDS: CARBIDOPA/LEVODOPA 25-100 MG TABLET PO SCH ×4 (09:49→21:55)
[2019-05-04] MEDS: ENTACAPONE 200 MG TABLET PO SCH ×4 (09:49→21:55)
[2019-05-04] MEDS: LOSARTAN 50 MG TABLET PO SCH (09:49)
[2019-05-04] MEDS: FERROUS SULFATE 325 MG TABLET PO SCH (09:49)
[2019-05-04] MEDS: FUROSEMIDE 40 MG/4 ML VIAL IV SCH (09:49)
[2019-05-04] MEDS: PANTOPRAZOLE 40 MG TABLET PO SCH (09:49)
[2019-05-04] MEDS: ENOXAPARIN 40 MG/0.4 ML SYRINGE SUBCUT SCH (13:57)
[2019-05-05 06:30] LABS: Calcium 8.6 MG/DL (8.5-10.1); Osmolality,Calculated 258.7 MOS/KG (273-304)
[2019-05-05] MEDS: PRAMIPEXOLE 1 MG TABLET PO SCH ×3 (09:00→20:49)
[2019-05-05] MEDS: PANTOPRAZOLE 40 MG TABLET PO SCH (09:00)
[2019-05-05] MEDS: FERROUS SULFATE 325 MG TABLET PO SCH (09:02)
[2019-05-05] MEDS: RASAGILINE 0.5 MG TABLET PO SCH (09:02)
[2019-05-05] MEDS: ENTACAPONE 200 MG TABLET PO SCH ×4 (09:03→20:49)
[2019-05-05] MEDS: FUROSEMIDE 40 MG/4 ML VIAL IV SCH (09:03)
[2019-05-05] MEDS: CARBIDOPA/LEVODOPA 25-100 MG TABLET PO SCH ×4 (09:03→20:49)
[2019-05-05] MEDS: LOSARTAN 50 MG TABLET PO SCH (09:03)
[2019-05-05] MEDS: ENOXAPARIN 40 MG/0.4 ML SYRINGE SUBCUT SCH (13:31)
[2019-05-05] MEDS ORDERED: POTASSIUM CHLORIDE 20 MEQ TABLET PO ONE (16:04)
[2019-05-06 06:09] LABS: Osmolality,Calculated 268.1 MOS/KG (273-304)
[2019-05-06] MEDS: PRAMIPEXOLE 1 MG TABLET PO SCH ×3 (08:40→21:42)
[2019-05-06] MEDS: FERROUS SULFATE 325 MG TABLET PO SCH (08:40)
[2019-05-06] MEDS: FUROSEMIDE 40 MG TABLET PO SCH (08:41)
[2019-05-06] MEDS: ENTACAPONE 200 MG TABLET PO SCH ×4 (08:42→21:42)
[2019-05-06] MEDS: LOSARTAN 50 MG TABLET PO SCH (08:42)
[2019-05-06] MEDS: RASAGILINE 0.5 MG TABLET PO SCH (08:42)
[2019-05-06] MEDS: PANTOPRAZOLE 40 MG TABLET PO SCH (08:42)
[2019-05-06] MEDS: CARBIDOPA/LEVODOPA 25-100 MG TABLET PO SCH ×4 (08:54→21:42)
[2019-05-06] MEDS: ENOXAPARIN 40 MG/0.4 ML SYRINGE SUBCUT SCH (14:33)
[2019-05-07] MEDS: RASAGILINE 0.5 MG TABLET PO SCH (08:34)
[2019-05-07] MEDS: PRAMIPEXOLE 1 MG TABLET PO SCH (08:34)
[2019-05-07] MEDS: CARBIDOPA/LEVODOPA 25-100 MG TABLET PO SCH ×2 (08:35→12:41)
[2019-05-07] MEDS: ENTACAPONE 200 MG TABLET PO SCH ×2 (08:35→12:41)
[2019-05-07] MEDS: LOSARTAN 50 MG TABLET PO SCH (08:35)
[2019-05-07] MEDS: PANTOPRAZOLE 40 MG TABLET PO SCH (08:36)
[2019-05-07] MEDS: FUROSEMIDE 40 MG TABLET PO SCH (08:36)
[2019-05-07] MEDS: FERROUS SULFATE 325 MG TABLET PO SCH (08:36)
[2019-05-07 12:30] VITALS: BP 136/68
== END 2019-05-07 13:35 | DRG 641 ==
LOC: N.ED 09:41 → SUATTDRO 13:38 → N.EDINP 13:38 → N.CC 14:18 → N.5E 05-02 11:05
PROVIDERS: ADMIT Internal Medicine; ATTEND Internal Medicine